=== PATIENT | male | born 1975 | race Caucasian/White ===

== ENCOUNTER 2020-12-02 04:49 | Emergency (ER) | payer BC, SELFPAY ==
[2020-12-02 04:52] VITALS: BP 121/69; PULSE 64; RESP 16; TEMP 36.3; O2SAT 97; BMI 24.3
[2020-12-02 04:53] VITALS: BP 121/69; PULSE 72; RESP 16; O2SAT 95
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
[2020-12-02 05:18] VITALS: BP 121/69; PULSE 72; RESP 16; O2SAT 96
[2020-12-02 05:23] VITALS: BP 114/78; PULSE 62; RESP 16; O2SAT 98
[2020-12-02 05:41] VITALS: BP 114/78; PULSE 69; RESP 18; O2SAT 99
== END 2020-12-02 05:43 | disposition home or self-care (01) ==
PROVIDERS: Emergency Provider Emergency Medicine; Family Provider Nurse Practitioner; PCP Nurse Practitioner
DX: S13.4XXA Sprain of ligaments of cervical spine, initial encounter (principal); M25.512 Pain in left shoulder; V89.2XXA Person injured in unspecified motor-vehicle accident, traffic, initial encounter
CPT/HCPCS: 72125; 73030; 99283